=== PATIENT | female | born 1995 | race Two or more races ===

== ENCOUNTER 2020-10-08 01:59 | Emergency (ER) | payer SELFPAY ==
[~2020-10-08] VITALS: Ht 162.6 cm; Wt 60.0 kg
[2020-10-08 02:03] VITALS: BP 110/75
== END 2020-10-08 04:30 | disposition left against medical advice (07) ==
LOC: ER 01:59
DX: R10.9 Unspecified abdominal pain (principal); I10 Essential (primary) hypertension
CPT/HCPCS: 99283